=== PATIENT | male | born 1960 | race African-American/Black ===

== ENCOUNTER 2017-07-04 14:30 | Emergency (ER) | payer MEDICAID, OTHER ==
[~2017-07-04] VITALS: Ht 177.8 cm; Wt 92.0 kg
[2017-07-04 14:37] VITALS: BP 130/84
== END 2017-07-04 17:58 | disposition left against medical advice (07) ==
LOC: ER 14:30
DX: Z53.21 Procedure and treatment not carried out due to patient leaving prior to being seen by health care provider (principal)

== ENCOUNTER 2019-03-27 12:48 | Emergency (ER) | payer MEDICAID ==
[~2019-03-27] VITALS: Ht 170.2 cm; Wt 91.0 kg
[2019-03-27 13:04] VITALS: BP 152/93
== END 2019-03-27 17:17 | disposition home or self-care (01) ==
LOC: ER 12:48
DX: L03.211 Cellulitis of face (principal); Z90.49 Acquired absence of other specified parts of digestive tract
CPT/HCPCS: 99282; 99283

== ENCOUNTER 2019-03-30 08:46 | Emergency (ER) | payer MEDICAID ==
[~2019-03-30] VITALS: Ht 167.6 cm; Wt 89.0 kg
[2019-03-30] MEDS ORDERED: IBUPROFEN 600MG TABLET PO ONE (09:45)
[2019-03-30] MEDS ORDERED: IBUPROFEN 800MG TABLET PO ONE (09:45)
[2019-03-30 09:57] VITALS: BP 164/105
== END 2019-03-30 09:50 | disposition home or self-care (01) ==
LOC: ER 08:46
DX: L03.211 Cellulitis of face (principal); R51 Headache; F12.10 Cannabis abuse, uncomplicated; F14.10 Cocaine abuse, uncomplicated; Z90.49 Acquired absence of other specified parts of digestive tract; Z87.891 Personal history of nicotine dependence
CPT/HCPCS: 99283

== ENCOUNTER 2019-03-31 11:31 | Emergency (ER) | payer MEDICAID, MEDICARE ==
[~2019-03-31] VITALS: Ht 172.7 cm; Wt 87.0 kg
[2019-03-31 11:47] VITALS: BP 155/99
== END 2019-03-31 13:27 | disposition home or self-care (01) ==
LOC: ER 11:31
DX: R51 Headache (principal); R03.0 Elevated blood-pressure reading, without diagnosis of hypertension
CPT/HCPCS: 99282